=== PATIENT | male | born 1970 | race Caucasian/White ===

== ENCOUNTER 2022-06-14 12:33 | Outpatient (CLI) | payer BC, SELFPAY ==
[2022-06-14 15:10] LABS: Albumin* 4.8 g/dL (3.3-5.0); Chloride* 103 mmol/L (96-114)
[2022-06-14 15:11] LABS: Potassium* 4.6 mmol/L (3.6-5.1); Sodium* 138 mmol/L (135-149)
[2022-06-14 15:12] LABS: Cholesterol* 186 mg/dL (90-199)
[2022-06-14 15:13] LABS: Alanine Aminotransferase* 37 U/L (4-50); Alkaline Phosphatase* 88 U/L (40-150); Aspartate Amino Transferase* 39 U/L (12-35); Blood Urea Nitrogen* 16 mg/dL (7-30); Carbon Dioxide* 22 mmol/L (20-32); Estimated Glomerular Filt Rate 91 ml/min; Glucose* 131 mg/dL (60-115); Total Protein* 7.5 g/dL (6.0-8.3); Triglycerides* 107 mg/dL (40-149)
[2022-06-14 15:14] LABS: Calcium* 9.8 mg/dL (8.4-10.6); HDL Cholesterol* 40 mg/dL (>=40); LDL Cholesterol Calculated 124 mg/dL (<100)
[2022-06-14 15:28] LABS: PSA Screen* 0.25 ng/mL (0.10-4.00); Thyroid Stimulating Hormone* 0.609 uIU/mL (0.270-4.20)
== END 2022-06-14 12:34 | disposition home or self-care (01) ==
PROVIDERS: PCP Family Medicine; Visit Provider Family Medicine
DX: E11.9 Type 2 diabetes mellitus without complications (principal); Z12.5 Encounter for screening for malignant neoplasm of prostate; Z13.6 Encounter for screening for cardiovascular disorders; Z13.29 Encounter for screening for other suspected endocrine disorder
CPT/HCPCS: 80053; 80061; 84153; 84443

== ENCOUNTER 2022-06-22 15:51 | Emergency (ER) | payer BC, SELFPAY ==
[2022-06-22 16:05] VITALS: BP 112/87; PULSE 103; TEMP 36.8; O2SAT 98; BMI 30.4
--- NOTE | 2022-06-22 16:06 | ED_ITS ---
HPI - General Adult General Time Seen by Provider: 16:07 Date Seen: 06/22/22 Chief complaint: Shortness of Breath/Dyspnea Stated complaint: Shortness of breath Time Seen by Provider: 06/22/22 15:57 Source: patient Mode of arrival: ambulatory Limitations: no limitations History of Present Illness HPI narrative: 51-year-old male with history of diet controlled diabetes presents with shortness of breath. Patient has been dealing with upper respiratory symptoms of nasal congestion, cough, shortness of breath, chest tightness for a couple of weeks. He has been on azithromycin and doxycycline as well as a prednisone burst and inhaler with no relief. His has a nonproductive cough, nasal congestion, fever yesterday. No vomiting. Negative COVID test at home. Related Data Home Medications Medication Instructions Recorded Confirmed albuterol sulfate 90 mcg/actuation 2 puff inhalation QDAY PRN 06/14/22 06/14/22 aerosol inhaler shortness of breath or wheezing cannabis PO 06/14/22 citalopram 10 mg tablet 10 mg PO QDAY 06/14/22 06/14/22 etanercept 50 mg/mL (1 mL) 50 mg subcut QWEEK 06/14/22 06/14/22 subcutaneous pen injector (Enbrel SureClick) lisinopril 30 mg tablet 30 mg PO QDAY 06/14/22 06/14/22 lorazepam 1 mg tablet 1 mg PO PRN 06/14/22 06/14/22 metformin 1,000 mg tablet 1,000 mg PO BID 06/14/22 06/14/22 omeprazole 20 mg capsule,delayed 20 mg PO QDAY 06/14/22 06/14/22 release Previous Rx's Medication Instructions Recorded azithromycin 250 mg tablet See Rx Instructions PO .COMPLEX #6 06/14/22 (Zithromax Z-Rory) tabs prednisone 50 mg tablet 50 mg PO QDAY #7 tabs 06/14/22 cefdinir 300 mg capsule 300 mg PO BID 7 days #14 caps 06/19/22 dextromethorphan-guaifenesin 10 1 tab-cap PO Q8H PRN cough #14 caps 06/22/22 mg-200 mg capsule (Robitussin Cough-Chest Congestion DM) fluticasone propionate 50 2 spray intranasal DAILY #16 grams 06/22/22 mcg/actuation nasal spray,suspension (Flonase Allergy Relief) prednisone 10 mg tablets in a dose See Rx Instructions .Route 06/22/22 pack .COMPLEX #31 ea pseudoephedrine HCl 30 mg tablet 30 mg PO Q4-6H PRN nasal 06/22/22 congestion #20 tabs Allergies Allergy/AdvReac Type Severity Reaction Status Date / Time No Known Drug Allergies Allergy Verified 06/14/22 11:54 Review of Systems Status of ROS: Reports: 10 or more systems reviewed and unremarkable except as noted in History and below [facility] Medical History Type 2 diabetes mellitus Social History Smoking Status: Former smoker Little interest or pleasure in doing things: not at all Feeling down, depressed, or hopeless: not at all Exam Narrative: Exam Narrative: General: Well-developed and well-nourished, no acute distress Head: Atraumatic and normocephalic Eyes: Pupils are equal reactive, extraocular motions intact, conjunctiva clear ENT: External nose and ears are normal, posterior pharynx without erythema or exudate Neck: No midline cervical tenderness, full spontaneous range of motion the neck, trachea midline, no adenopathy Heart: Tachycardic but regular Lungs: Upper airway wheezes with expiration, trace inspiratory wheezes with some crackles in the bases Abdomen: Soft, nontender, nondistended with active bowel sounds Musculoskeletal: No tenderness, deformity, or edema Neurologic: Awake, alert, and oriented x3, no gross focal neurologic deficits, cranial nerves intact as tested Psych: Mood and affect are appropriate Skin: No rashes Const: Vital Signs, click to edit/add: Vital Signs - 24 hr 06/22/22 16:05 Temperature 98.2 F Pulse Rate [Left P ulse Oximeter] 103 H Blood Pressure [Ri ght Upper Arm] 112/87 Pulse Oximetry 98 Oxygen Delivery Me thod Room Air Documenting provider has reviewed patient's vital signs: yes Course Course Hospital Course: Patient seen and examined, prior records are reviewed. Patient presents with cough, shortness of breath, nasal congestion. This is been ongoing for couple of weeks in spite of trials of antibiotics and steroid as well as inhaler. On exam here, tachycardic, no hypoxia, no respiratory distress. Forced upper airway wheeze with exhalation, trace inspiratory wheezes. Reevaluation(s) Reevaluation #1: Labs are reassuring, CT scan of the chest is negative. Patient will be started on Flonase, pseudoephedrine, cough medication, and prednisone taper. Also discussed using a Neti pot and humidifier at home. Stable for discharge Time: 18:05 Vital Signs Vital signs: Initial Vital Signs Temperature 98.2 F 06/22/22 16:05 Temperature Source Temporal Artery Scan 06/22/22 16:05 Pulse Rate 103 H 06/22/22 16:05 Blood Pressure 112/87 06/22/22 16:05 Blood Pressure Mean 95 06/22/22 16:05 Blood Pressure Position Sitting 06/22/22 16:05 Pulse Oximetry 98 06/22/22 16:05 Oxygen Delivery Method 06/22/22 16:05 Vital Signs Temperature 98.2 F 06/22/22 16:05 Pulse Rate 103 H 06/22/22 16:05 Blood Pressure 112/87 06/22/22 16:05 Pulse Oximetry 98 06/22/22 16:05 Oxygen Delivery Method 06/22/22 16:05 Temperature 98.2 F 06/22/22 16:05 Pulse Rate 103 H 06/22/22 16:05 Blood Pressure 112/87 06/22/22 16:05 Pulse Oximetry 98 06/22/22 16:05 Oxygen Delivery Method 06/22/22 16:05 Medical Decision Making Medical Records Medical records reviewed: Yes I reviewed the patient's medical records Lab Data Lab results reviewed: Yes I reviewed the patient's lab results Labs: Lab Results 06/22/22 06/22/22 06/22/22 Range/Units 16:02 16:35 16:35 WBC 11.08 H (4.50-11.00) K/uL RBC 5.27 (4.30-5.90) m/uL Hgb 14.7 (13.5-17.5) gm/dL Hct 43.9 (37.0-53.0) % MCV 83 (80-100) fL MCH 28 (26-34) pg MCHC 34 (32-36) gm/dL RDW Coeff of Lorenzo 13.1 (11.5-15.5) % Plt Count 342 (140-440) K/uL Neut % (Auto) 73.1 H (42.0-72.0) % Lymph % (Auto) 18.4 L (20-44) % [place] % (Auto) 7.3 (0.0-11.0) % Eos % (Auto) 0.7 (0.0-7.0) % Baso % (Auto) 0.2 (0.0-3.0) % Neut # (Auto) 8.10 H (1.7-7.0) K/uL Lymph # (Auto) 2.00 (0.90-2.90) K/uL [place] # (Auto) 0.80 (0.00-0.90) K/UL Eos # (Auto) 0.10 (0.00-0.50) K/uL Baso # (Auto) 0.00 (0.00-0.30) K/uL Abs Immat Gran (auto) 0.00 (0.00-0.30) K/uL Imm/Tot Granulo (auto) 0.3 % VBG pH (7.32-7.43) VBG pCO2 (40-50) mmHG VBG pO2 (25-47) mmHG VBG HCO3 (21-28) mmol/L Sodium 137 (135-149) mmol/L Potassium 4.2 (3.6-5.1) mmol/L Chloride 106 (96-114) mmol/L Carbon Dioxide 21 (20-32) mmol/L BUN 14 (7-30) mg/dL Creatinine 0.8 (0.5-1.5) mg/dL Estimated Creat Clear 119.90 Estimated GFR 107 ml/min Glucose 139 H (60-115) mg/dL Calcium 9.5 (8.4-10.6) mg/dL Magnesium 1.6 (1.5-2.6) mg/dL NT-Pro-B Natriuret Pep (0-125) PG/mL SARS-CoV-2 (PCR) Negative SARS-CoV-2 (Negative) Influenza Type A (PCR) Negative PCR FLU A (Negative) Influenza Type B (PCR) Negative PCR FLU B (Negative) 06/22/22 06/22/22 Range/Units 16:35 16:35 WBC (4.50-11.00) K/uL RBC (4.30-5.90) m/uL Hgb (13.5-17.5) gm/dL Hct (37.0-53.0) % MCV (80-100) fL MCH (26-34) pg MCHC (32-36) gm/dL RDW Coeff of Lorenzo (11.5-15.5) % Plt Count (140-440) K/uL Neut % (Auto) (42.0-72.0) % Lymph % (Auto) (20-44) % [place] % (Auto) (0.0-11.0) % Eos % (Auto) (0.0-7.0) % Baso % (Auto) (0.0-3.0) % Neut # (Auto) (1.7-7.0) K/uL Lymph # (Auto) (0.90-2.90) K/uL [place] # (Auto) (0.00-0.90) K/UL Eos # (Auto) (0.00-0.50) K/uL Baso # (Auto) (0.00-0.30) K/uL Abs Immat Gran (auto) (0.00-0.30) K/uL Imm/Tot Granulo (auto) % VBG pH 7.468 H (7.32-7.43) VBG pCO2 33 L (40-50) mmHG VBG pO2 56.9 H (25-47) mmHG VBG HCO3 24 (21-28) mmol/L Sodium (135-149) mmol/L Potassium (3.6-5.1) mmol/L Chloride (96-114) mmol/L Carbon Dioxide (20-32) mmol/L BUN (7-30) mg/dL Creatinine (0.5-1.5) mg/dL Estimated Creat Clear Estimated GFR ml/min Glucose (60-115) mg/dL Calcium (8.4-10.6) mg/dL Magnesium (1.5-2.6) mg/dL NT-Pro-B Natriuret Pep 25 (0-125) PG/mL SARS-CoV-2 (PCR) (Negative) Influenza Type A (PCR) (Negative) Influenza Type B (PCR) (Negative) Imaging Data CT scan - chest: Attestation: I have reviewed the pertinent imaging results. My impression: No pulmonary, no acute infiltrates or effusion Radiologist's impression: IMPRESSION: 1. No pulmonary embolism. 2. Clear lungs. ECG Data Attestation: I personally reviewed and interpreted this ECG as follows: Prior ECG tracings: not available for review Interpretation: Performed at 4:58 p.m. demonstrates sinus rhythm rate 101, right bundle-branch block and left anterior fascicular block, no acute ST elevations or depressions, normal axis, QTC 42. No prior for comparison. Discharge Plan Discharge Clinical Impression: Acute frontal sinusitis Patient Disposition: Home, Self-Care Condition: Stable Instructions: Rhinosinusitis (DC) Additional Instructions: Take medications as prescribed. Get a Neti pot and use daily Follow-up with your doctor in 7-10 days Activity Level: No Restrictions Discharge Diet: Regular Prescriptions: New pseudoephedrine HCl 30 mg tablet 30 mg PO Q4-6H PRN (Reason: nasal congestion) Qty: 20 0RF Rx Instructions: DNExceed 4 doses/24h fluticasone propionate [Flonase Allergy Relief] 50 mcg/actuation spray,suspension 2 spray intranasal DAILY Qty: 16 2RF Rx Instructions: administer into each nostril prednisone 10 mg tablets,dose pack See Rx Instructions .ROUTE .COMPLEX Qty: 31 0RF Rx Instructions: 40 mg daily for 3 days, then 30 mg daily for 3 days, then 20 mg daily for 3 days, then 10 mg daily for 3 days, then 5 mg daily for 2 days Robitussin Cough-Chest Kamar DM 10-200 mg capsule 1 tab-cap PO Q8H PRN (Reason: cough) Qty: 14 0RF No Action metformin 1,000 mg tablet 1,000 mg PO BID Enbrel SureClick 50 mg/mL (1 mL) pen injector 50 mg subcut QWEEK citalopram 10 mg tablet 10 mg PO QDAY Label Comments: TAKE 1 TABLET BY MOUTH EVERY MORNING omeprazole 20 mg capsule,delayed release(DR/EC) 20 mg PO QDAY lisinopril 30 mg tablet 30 mg PO QDAY lorazepam 1 mg tablet 1 mg PO PRN Label Comments: TAKE 1 TABLET BY MOUTH EVERY 4 HOURS IF NEEDED FOR ANXIETY. albuterol sulfate 90 mcg/actuation HFA aerosol inhaler 2 puff inhalation QDAY PRN (Reason: shortness of breath or wheezing) cannabis PO prednisone 50 mg tablet 50 mg PO QDAY Qty: 7 0RF azithromycin [Zithromax Z-Rory] 250 mg tablet See Rx Instructions PO .COMPLEX Qty: 6 0RF Rx Instructions: For 250 mg dose pack: take 500 mg today (day 1), then 250 mg for 4 days (days 2-5) PO cefdinir 300 mg capsule 300 mg PO BID 7 Days Qty: 14 0RF Follow Up/Referrals: Landon Horne MD [Primary Care Provider] - Stand Alone Forms: [facility] Info Instructions
--- NOTE | 2022-06-22 16:20 | CRLHL7_ITS ---
For Patients: As a result of the Century Cures Act, medical imaging exams and procedure reports are released immediately into your electronic medical record. You may view this report before your referring provider. If you have questions, please contact your health care provider. INDICATION: Cough, dyspnea. TECHNIQUE: CT chest PE was acquired with 95 mL Isovue 370 IV contrast. Coronal and sagittal reformats were generated. COMPARISON: None. FINDINGS: Pulmonary arteries: The quality of enhancement of the pulmonary arteries is adequate. No filling defects to suggest pulmonary emboli. No findings of pulmonary artery hypertension. Thyroid: Unremarkable. Thoracic lymph nodes: No enlarged supraclavicular, mediastinal, hilar, or axillary lymph nodes. Mediastinum and esophagus: Unremarkable. Heart and vasculature: Unremarkable. Lungs: Unremarkable. Pleura: Unremarkable. Chest wall: Unremarkable. Upper abdomen: No acute or significant findings. Bones: Unremarkable for age. IMPRESSION: 1. No pulmonary embolism. 2. Clear lungs. Please note that all CT scans at this facility use dose modulation, iterative reconstruction, and/or weight-based dosing when appropriate to reduce radiation dose to as low as reasonably achievable. Dictated by Rambo Bocanegra MD @ 06/22/2022 5:26:03 PM (Electronically Signed)
[2022-06-22] MEDS: IPRAT-ALBUT 0.5-2.5 MG/3 ML NEB 1 NEB IH (16:45)
[2022-06-22 16:46] LABS: HCO3 VBG 24 mmol/L (21-28); PCO2 VBG 33 mmHG (40-50); PO2 VBG 56.9 mmHG (25-47); pH VBG 7.468 (7.32-7.43)
[2022-06-22 16:55] LABS: Basophils Percent Auto 0.2 % (0.0-3.0); Eosinophils Percent Auto 0.7 % (0.0-7.0); Hematocrit 43.9 % (37.0-53.0); Hemoglobin* 14.7 gm/dL (13.5-17.5); Immature Granulocytes Pct Auto 0.3 %; Lymphocytes Percent Auto 18.4 % (20-44); Mean Corpuscular HGB Conc 34 gm/dL (32-36); Mean Corpuscular Hemoglobin 28 pg (26-34); Mean Corpuscular Volume 83 fL (80-100); Monocytes Percent Auto 7.3 % (0.0-11.0); Neutrophils Percent Auto 73.1 % (42.0-72.0); Platelet Count* 342 K/uL (140-440); RDW Coefficient of Variation % 13.1 % (11.5-15.5); Red Blood Count 5.27 m/uL (4.30-5.90); White Blood Count* 11.08 K/uL (4.50-11.00)
[2022-06-22 17:02] LABS: Slide Review Reflex No
[2022-06-22 17:04] LABS: PCR FLU A Negative PCR FLU A (Negative); PCR FLU B Negative PCR FLU B (Negative)
[2022-06-22 17:05] LABS: SARS PCR* Negative SARS-CoV-2 (Negative)
[2022-06-22 17:26] LABS: Chloride* 106 mmol/L (96-114)
[2022-06-22 17:27] LABS: Potassium* 4.2 mmol/L (3.6-5.1); Sodium* 137 mmol/L (135-149)
[2022-06-22 17:29] LABS: Creatinine* 0.8 mg/dL (0.5-1.5); Estimated Glomerular Filt Rate 107 ml/min
[2022-06-22 17:30] LABS: Blood Urea Nitrogen* 14 mg/dL (7-30); Calcium* 9.5 mg/dL (8.4-10.6); Carbon Dioxide* 21 mmol/L (20-32); Glucose* 139 mg/dL (60-115); Magnesium* 1.6 mg/dL (1.5-2.6)
[2022-06-22 17:41] LABS: NT Pro B Type NatriureticPept* 25 PG/mL (0-125)
[2022-06-22 18:16] VITALS: PULSE 92; O2SAT 97
--- NOTE | 2022-06-22 18:49 | ED.NURSE ---
Pt left without taking written rx. Pt called and states he is on his way to work, so his fiance (aLla Davila) will come to [employer] supervisor rx. Script at [facility] for pickup.
== END 2022-06-22 18:17 | disposition home or self-care (01) ==
PROVIDERS: Emergency Provider Family Medicine; PCP Family Medicine
DX: J32.1 Chronic frontal sinusitis (principal)
CPT/HCPCS: 36415; 71260; 80048; 82803; 83735; 83880; 85025; 87631; 93005; 94640; 99284; 99285; Q9967

== ENCOUNTER 2023-06-28 08:34 | Outpatient (CLI) | payer BC, SELFPAY | END 2023-06-28 08:35 | disposition home or self-care (01) | LOC: NFLDREF 08:35 | PROVIDERS: PCP Family Medicine; Visit Provider Family Medicine | DX: E78.5 Hyperlipidemia, unspecified (principal); I10 Essential (primary) hypertension; E11.9 Type 2 diabetes mellitus without complications; N52.9 Male erectile dysfunction, unspecified | CPT/HCPCS: 80048; 80076 ==

== ENCOUNTER 2023-09-02 06:28 | Day surgery (SDC) | payer BC, SELFPAY ==
[2023-09-02] VITALS (8 sets, daily range): BP systolic 127–146; BP diastolic 74–84; PULSE 50–57; RESP 16–18; TEMP 36.5–36.6; O2SAT 95–100; BMI 31.1
--- OUTSIDE RECORDS SUMMARY | 2023-09-02 06:30 | XMS_ITS | Clinical Summary ---
Author Name Unknown Organization [facility] Address [place], [place] [address] Care Team Providers Care Paper Cutter Operator Name Role Phone Vy Shields MD Unavailable [phone] Pcp, No Primary Care Provider Unavailabl e Allergies Active Allergy Reactions Criticality Noted Date Comments Atorvastatin Intolerance-Can't Take 04/04/2017 Tramadol Hives Medium 01/18/2016 Medications Medication Sig Dispensed Refills Start Date End Date Status albuterol HFA (PRO-AIR; VENTOLIN; PROVENTIL) 90 mcg/actuation inhalerIndications:W heezing Inhale 1-2 Puffs by mouth every 4 hours if needed for Wheezing 2nd choice. 1 Each 0 09/22/2021 Active omeprazole (PRILOSEC) 20 mg Delayed-Release capsuleIndications:C hronic GERD Take 1 Capsule (20 mg) by mouth 3 times daily. TAKE 1 CAPSULE BY MOUTH THREE TIMES A DAY 270 Capsule 2 12/14/2021 Active lisinopriL (PRINIVIL; ZESTRIL) 30 mg tabletIndications:Hy pertension, unspecified type TAKE 1 TABLET BY MOUTH EVERY DAY 90 Tablet 2 12/17/2021 Active cyclobenzaprine (FLEXERIL) 5 mg tabletIndications:Ne uritis of foot, left Take 1 Tablet (5 mg) by mouth 3 times daily. 30 Tablet 0 02/14/2022 Active pravastatin (PRAVACHOL) 20 mg tabletIndications:Co ntrolled type 2 diabetes mellitus without complication, without long-term current use of insulin (HC) Take 1 Tablet (20 mg) by mouth at bedtime. 90 Tablet 3 02/15/2022 Active metFORMIN (GLUCOPHAGE) 1,000 mg tabletIndications:Ty pe 2 diabetes mellitus without complication, without long-term current use of insulin (HC) Take 1 Tablet (1,000 mg) by mouth in the morning and 1 Tablet (1,000 mg) in the evening. Take with meals. 180 tablet. 3 02/15/2022 Active LORazepam (ATIVAN) 1 mg tabletIndications:An xiety Take 1 Tablet (1 mg) by mouth every 4 hours if needed for Anxiety. 12 Tablet 0 02/15/2022 Active citalopram (CELEXA) 10 mg tabletIndications:An xiety Take 1 Tablet (10 mg) by mouth every morning. 90 Tablet 3 02/15/2022 Active fluticasone (50 mcg per actuation) nasal solution (FLONASE)Indications :Acute mucoid otitis media of both ears Inhale 1 Victor to both nostrils once daily. Inhale 1 Victor into both nostrils once daily. 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 11/10/2015 DDD (degenerative disc disease), lumbar 07/08/20 13 Herniation of lumbar intervertebral disc 012 Hypertension 12/15/2010 Resolved Problems Problem Noted Date Diagnosed Date Resolved Date Diabetes 07/08/2013 11/25/2015 Immunizations Name Administration Dates Next Due COVID-19 vaccine ([employer] NTech 30mcg/0.3mL) PF, MDV 07/05/2021,05/03/2021 Influenza, IIV3 (Age >=3 years) 05/23/20 09,06/25/2005,06/30/2003,2001 Influenza, IIV4 09/03/2019,06/15/2016 Pneumococcal Poly,23-Valent (Pneumovax) 08/17/2016 Td (Age >=7 Years) 05/01/2019 Tdap 05/23/2009 Family History Medical History Relation Name Comments Anesthesia Malignant Hyperthermia No Family History Social History Tobacco Use Types Packs/Day Years Used Date Smoking Tobacco: Never Smokeless Tobacco: Former Chew Quit: 08/19/2021 Tobacco Cessation:Counseling Given: Yes Alcohol Use Standard Drinks/Week Comments Not Currently 0 (1 standard drink = 0.6 oz pur e alcohol) PHQ-2 Answer Date Recorded PHQ-2 TOTAL SCORE 0 02/15/2022 Social Connections Answer Date Recorded Frequency of Communication with Friends and Fami ly Not on file 08/09/2021 Financial Resource Strain Answer Date R ecorded Difficulty of Paying Living Expenses Not on file 08/09/2021 Difficulty of Paying Living Expenses Not on file 08/09/2021 Sex and Gender Information Value Date Recorded Sex Assigned at Not on file Gender Identity Not on file Sexual Orientation Not on file Obstetrics History Last Filed Vital Signs Vital Sign Reading Time Taken Comments Blood Pressure 121/80 03/30/2022 9:31 AM CDT Pulse 75 03/30/2022 9:31 AM CDT Temperature 36.8 ??C (98.3 ??F) 01/31/2022 9:31 AM CD T Respiratory Rate 16 12/07/2021 10:34 AM CDT Oxygen Saturation 98% 03/30/2022 9:36 AM CDT Inhaled Oxygen Concentration - - Weight 105 kg (231 lb 6.4 oz) 03/30/2022 9:31 AM CDT Height 180.3 cm (5' 11) 02/15/2022 8:54 AM CDT Body Mass Index 32.27 02/15/2022 8:54 AM CDT Plan of Treatment Health Maintenance Due Date Last Done Comments HIV for age 15-65 1985 Colonoscopy through age 75 2015 Pneumococcal series for age 6-64 (2 of 2 - PCV) 08/17/2017 08/17/2016 Zoster (shingles) series for age 50+ (1 of 2) 2020 BMI (ht and wt on same day) for age 18+ 02/15/2023 02/15/2022, 01/31/2022, 10/26/2021, Additional history exists Depression screening for age 12+ 02/15/2023 02/15/2022, 02/15/2022, 10/26/2021, Additional history exists COVID-19 vaccine series (3 - 2022- season) 2023 07/05/2021, 05/03/2021 Influenza for age 50-64 04/19/2023 09/03/19 20, 06/15/2016, 05/23/2009, Additional history exists Lipids for age 45-75 02/15/2027 02/15/2022, 11/24/2020, 03/10/2020, Additional history exists Tetanus booster 05/01/2029 05/01/2019, 05/23/2009 Tdap Completed 05/23/2009 Hepatitis C screening for ag e 18-79 Completed 03/12/2016, 03/12/2016 Care Teams Paper Cutter Operator Relationship Specialty Start Date End Date Pcp, No . PCP - General 05/12/22 Vy Shields MD [address] [place] [address] Rheumatology Rheumatology 06/15/16
--- NOTE | 2023-09-02 06:47 | SUR.PREOP ---
SAME DAY SURGERY LOCAL INJECTION SITE VERIFICATION WAS PERFORMED BY SURGEON/PA AND PATIENT PRIOR TO LOCAL ANESTHETIC BEING INJECTED TO OPERATIVE SITE.
[2023-09-02] MEDS: ETHYL CHLORIDE 1 APPLICATION 1 APPLIC TOPICAL (06:55)
[2023-09-02] MEDS: BUPIVACAINE 0.5% 30 ML INJECTION (06:55)
--- NOTE | 2023-09-02 07:42 | P.ORPRC_ITS ---
Procedure Note Date of procedure: 09/02/23 Procedure: PREOPERATIVE DIAGNOSIS: 1. Right carpal tunnel syndrome 2. Right long trigger finger-flexor tenosynovitis POSTOPERATIVE DIAGNOSIS: 1. Right carpal tunnel syndrome 2. Right long trigger finger-flexor tenosynovitis PROCEDURE: 1. Right open carpal tunnel release 2. Right open long trigger finger release-A1 elmira release SURGEON: Roni Ramesh MD. CLOTHING PATTERN PREPARER: KLEBER Miles ANESTHESIA: Local anesthetic (50:50 mixture of 2 % lidocaine with epi and 0.5% marcaine plain) - 10ml total IMPLANTS: None EBL: 5 mL TOURNIQUET: None COMPLICATIONS: None evident INDICATIONS: The patient is a pleasant 52-year-old male who has experienced right hand numbess/tingling affecting the radial 3.5 digits for multiple months. It has progressively gotten worse. In addition, he has experienced right long finger catching/triggering with tenderness over the volar MCP joint region. Nonoperative management has been tried and failed, and therefore surgery was recommended. DESCRIPTION OF PROCEDURE: Following a thorough discussion of risks, benefits, and alternatives consent was obtained and the operative extremity was marked. The patient was brought to the operating room and placed supine on the operating table. Local anesthesia induction was undertaken in preop holding. No antibiotics were administered as this was planned to be a local case only. Proper time-out was performed identifying proper patient, site, and procedure. The operative extremity was prepped and draped in the appropriate sterile fashion using ChloraPrep. An incision was made in line with the radial border of the ring finger beginning 1 cm distal to the distal wrist crease and progressing for another 2.5cm distal. Caution was taken to stay proximal to Christian's cardinal line. Sharp incision through the skin, subcutaneous tissue, and palmar fascia was performed. The thenar musculature was bluntly elevated off the transverse carpal ligament. The ligament was directly visualized, and divided sharply with a 15 blade. This was released from its most proximal to the most distal extent. Metzenbaum scissor was also utilized to release the fascia extension proximally. We confirmed complete release of the transverse carpal ligament. We then turned our attention to the right long trigger finger release. An incision was made on the palmar surface of the hand overlying the MCP joint region of the appropriate digit(s) respecting the palmar creases being cautious not to cross these perpendicularly. Sharp incision through the skin, and blunt dissection through subcutaneous tissue allowing protection of crossing neurologic structures. The A1 elmira was visualized directly. It was incised sharply with a 15 blade. It was released completely from its distal to proximal extent under direct visualization. The tendon was inspected and found to be mildly striated consistent with some friction. Otherwise, it was intact. The tendon was removed out of the wound, and further inspected. The patient was asked to manually flex and extend the digits and showed no further catching. The catching, which was visualized initially, was no longer evident with reproduction of a manual fist and relaxation. Closure was performed with 4-O nylon in interrupted fashion. Soft dressings were applied, and the patient was transferred to the recovery room in stable condition. PLAN: 1. Encourage elevation of the operative extremity. 2. Range of motion of the fingers and hand/wrist as tolerated. 3. Ibuprofen/acetaminophen and/or Percocet as needed for pain control. 4. Follow up with PA visit in 12-16 days for wound check and suture removal.
[2023-09-02] MEDS: BACITRACIN OINTMENT BULK TUBE 1 APPLIC TOPICAL (07:46)
== END 2023-09-02 08:05 | disposition home or self-care (01) ==
PROVIDERS: PCP Family Medicine; Visit Provider Orthopaedic Surgery Sports Medicine
PROC: (CPT 26055; principal; 2023-09-02 07:30)
PROC: (CPT 64721; 2023-09-02 07:30)
DX: G56.01 Carpal tunnel syndrome, right upper limb (principal); M65.331 Trigger finger, right middle finger; M65.841 Other synovitis and tenosynovitis, right hand
CPT/HCPCS: 64721; 26055; J0665

== ENCOUNTER 2023-10-28 07:02 | Outpatient (CLI) | payer BC, SELFPAY ==
--- NOTE | 2023-10-28 07:56 | W.ANESCHARGE ---
Anesthesia Charges Start Date/Time Anesthesia Start Date: 10/28/23 Anesthesia Start Time: 07:25 Stop Date/Time Anesthesia Stop Date: 10/28/23 Anesthesia Stop Time: 07:54
--- NOTE | 2023-10-28 09:04 | W.ANESCHARGE ---
Anesthesia Charges Start Date/Time Anesthesia Start Date: 10/28/23 Anesthesia Start Time: 07:25 Stop Date/Time Anesthesia Stop Date: 10/28/23 Anesthesia Stop Time: 07:54
== END 2023-10-28 07:03 | disposition home or self-care (01) ==
LOC: OP CLINIC 07:03
PROVIDERS: PCP Family Medicine; Visit Provider Surgery
DX: Z12.11 Encounter for screening for malignant neoplasm of colon (principal); K62.1 Rectal polyp
CPT/HCPCS: 00811; 45385; 88305; J2704

== ENCOUNTER 2024-01-01 12:30 | Outpatient (CLI) | payer BC, SELFPAY ==
--- OUTSIDE RECORDS SUMMARY | 2024-01-01 12:34 | XMS_ITS | Clinical Summary ---
Author Name Unknown Organization [employer] [facility] Address [place], [place] [address] Care Team Providers Care Baseball Club Manager Name Role Phone Vy Shields MD Unavailable [phone] Pcp, No Primary Care Provider Unavailabl e Allergies Active Allergy Reactions Criticality Noted Date Comments Atorvastatin Intolerance-Can't Take 04/04/2017 Tramadol Hives Medium 01/18/2016 Medications Medication Sig Dispensed Refills Start Date End Date Status albuterol HFA (PRO-AIR; VENTOLIN; PROVENTIL) 90 mcg/actuation inhalerIndications:W heezing Inhale 1-2 Puffs by mouth every 4 hours if needed for Wheezing 2nd choice. 1 Each 09/22/2021 Active omeprazole (PRILOSEC) 20 mg Delayed-Release [...] by mouth 3 times daily. 30 Tablet 02/14/2022 Active pravastatin (PRAVACHOL) 20 mg tabletIndications:Co [...] hours if needed for Anxiety. 12 Tablet 02/15/2022 Active citalopram (CELEXA) 10 mg tabletIndications:An xiety Take 1 Tablet (10 mg) by mouth every morning. 90 Tablet 3 02/15/2022 Active fluticasone (50 mcg per actuation) nasal solution (FLONASE)Indications :Acute mucoid otitis media of both ears Inhale 1 [place] to both nostrils once daily. Inhale 1 [place] into both nostrils once daily. 15 mL [...] Diagnosed Date Resolved Date Diabetes 07/08/2013 11/25/2015 Encounters Date Type Department Care Team Description 10/28/2023 Lab Requisition [facility] [phone] Perri Rivera MD from Last 3 Months Immunizations Name Administration Dates Next Due COVID-19 vaccine (SpaceClaim NTAppHero 30mcg/0.3mL) NIRAV MCCULLOUGH 07/05/2021,05/03/2021 Influenza, IIV3 (Age >=3 years) 05/23/20 [...] 10/26/2021, Additional history exists COVID-19 vaccine series ( season) 2023 07/05/2021, 05/03/2021 Influenza for age 50-64 04/19/2024 09/03/19 20, 06/15/2016, 05/23/2009, Additional history exists Lipids for age 45-75 02/15/2027 02/15/2022, 11/24/2020, 03/10/2020, Additional history exists Tetanus booster 05/01/2029 05/01/2019, 05/23/2009 Tdap Completed 05/23/2009 Hepatitis C screening for ag e 18-79 Completed 03/12/2016, 03/12/2016 Procedures Procedure Name Priority Date/Time Associated Diagnosis Comments LAB TRACKING EVENT Routine 10/28/2023 8: 48 AM CDT PATH TISSUE EXAM Routine 10/28/2023 8:48 AM CDT LIPID PANEL W REFLEX MEASURED LDL Routine 02/15/2022 8:48 AM CDT Hypertriglyceridemi a ANTI HCV Routine 03/12/2016 10:45 AM CDT Sacroiliitis (HC) from Last 3 Months or Most Recently Relevant to Health Maintenance Results * LAB TRACKING EVENT (10/28/2023 8:48 AM CDT) Other (Other) Client Collect / Unknown 10/28/2023 8:48 AM CDT 10/28/2023 9:59 PM CDT Perri Rivera MD LAB BILL ONLY [facility] [address] [place] [address], * PATH TISSUE EXAM (10/28/2023 8:48 AM CDT) Case Report Pathology Report ?Case: [id number] ? Authorizing Provider: ??Perri Rivera MD ??Collected: ? 10/28/2023 0848 ? Ordering Location: ? [facility] ?Received: ?10/29/2023 0808 ? Pathologist: ? Nba Dougherty, ? MD ? Specimen: ?Rectal Polyp ? 10/30/2023 2:18 PM CDT [facility] Final Diagnosis A) RECTUM, POLYPECTOMY: 1. Hyperplastic polyp 10/30/2023 2:18 PM CDT [facility] Clinical Information Mr. Lunsford is a 53 y.o. undergoing screening colonoscopy. This is the patient's first colonoscopy. 10/30/2023 2:18 PM CDT [facility] Gross Description A) Received in formalin is a cabrales mucosal fragment measuring 3 mm in greatest dimension, which is entirely submitted in one cassette. It is labeled with the patient's name and designated colon-rectum. Meg Morse 10/29/2023 8:29 AM 10/30/2023 2:18 PM CDT [facility] Microscopic Description The final diagnosis is based on microscopic examination of appropriate sections of all specimens. 10/30/2023 2:18 PM CDT [facility] Additional Information Interpreted at [facility] - [address] [facility] [address], [place] [address] 10/30/2023 2:18 PM CDT [facility]- ENTRVA LABORATORY Other (Rectal Polyp ) 10/28/2023 8:48 AM CDT 10/29/2023 8:08 AM CDT Perri Rivera MD PATHOLOGY/CYTOLO GY Performing Organization Address City/State/[facility] Co de Phone Number [facility] [address] [place] [address], * (ABNORMAL) LIPID PANEL W REFLEX MEASURED LDL (02/15/2022 8:48 AM CDT) CHOLESTEROL,TOTAL 156 100 - 199 mg/dL 02/15/2022 5:09 PM CDT [facility] TRAL LABORATORY TRIGLYCERIDES 120 <150 mg/dL 02/15/2022 5:09 PM CDT [facility] TR[facility] LABORATORY HDL CHOLESTEROL 40(L) >40 mg/dL 5:09 PM CDT [facility] TR[facility] LABOR[facility]ORY NON-HDL CHOLESTEROL 116 <145 mg/dl 02/15/2022 5:09 PM CDT [facility] TRAL LABORATORY CHOL/HDL RATIO 3.90 <4.50 02/15/2022 5:09 PM CDT [facility] TRAL LAB[facility]ORY LDL CHOLESTEROL 92 <=130 mg/dL 02/15/2022 5:09 PM CDT [facility] TR[facility] LAB[facility] VLDL CHOLESTEROL 24 <=30 mg/dL 02/15/2022 5:09 PM CDT [facility] TRAL LABORATORY PROVIDER ORDERED STATUS RANDOM 02/15/2022 5:09 PM CDT [facility] Blood BLOOD SPECIMEN / Unknown Venipuncture / Unknown 02/15/2022 8:48 AM CDT 02/15/2022 8:51 AM CDT Chema Isbell MD CHEMISTRY [facility] 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 Reflexed to HCV RNA Quant (See separate report). Vy Shields MD SEND OUTS [facility] [address] [place] [address], from Last 3 Months or Most Recently Relevant to Health Maintenance Care Teams Baseball Club Manager Relationship Specialty Start Date End Date Pcp, No . PCP - General 05/12/22 Vy Shields MD [address] [place] [address] Rheumatology Rheumatology 06/15/16
== END 2024-01-01 12:31 | disposition home or self-care (01) ==
PROVIDERS: PCP Family Medicine; Visit Provider Family Medicine
DX: E11.9 Type 2 diabetes mellitus without complications (principal); I10 Essential (primary) hypertension; E78.5 Hyperlipidemia, unspecified; Z79.899 Other long term (current) drug therapy
CPT/HCPCS: 80048; 80061; 84460; 85025

== ENCOUNTER 2024-01-28 15:20 | Outpatient (CLI) | payer BC, SELFPAY ==
--- OUTSIDE RECORDS SUMMARY | 2024-01-28 15:22 | XMS_ITS | Clinical Summary ---
Author Organization [employer] [facility] Address [place], [place] [address] Care Team Providers Care Digital Circuit Designer Name Role Phone Vy Shields MD Unavailable [phone] Pcp, No Primary Care Provider Unavailabl e [...] otitis media of both ears Inhale 1 [place] to both nostrils once daily. Inhale 1 [place] into both nostrils once daily. 15 mL [...] Department Care Team Description 10/28/2023 Lab Requisition [facility] [phone] Perri Rivera MD from Last 3 Months Immunizations Name Administration Dates Next Due COVID-19 vaccine (Adform 30mcg/0.3mL) PFNIRAV 07/05/2021,05/03/2021 Influenza, IIV3 (Age >=3 years) 05/23/20 [...] history exists COVID-19 vaccine series (3 - 2023-24 season) 2023 07/05/2021, 05/03/2021 Influenza for age [...] CDT Perri Rivera MD LAB BILL ONLY [facility] [address] [place] [address], * PATH TISSUE EXAM (10/28/2023 8:48 AM CDT) Case Report Pathology Report ?Case: [id number] ? Authorizing Provider: ??Perri Rivera MD ??Collected: ? 10/28/2023 0848 ? Ordering Location: ? [facility] ?Received: ?10/29/2023 0808 ? Pathologist: ? Nba Dougherty, ? MD ? Specimen: ?Rectal Polyp ? 10/30/2023 2:18 PM CDT [facility] LABORATORY Final Diagnosis A) RECTUM, POLYPECTOMY: 1. Hyperplastic polyp 10/30/2023 2:18 PM CDT [facility] Clinical Information Mr. Lunsford is a 53 y.o. undergoing screening colonoscopy. This is the patient's first colonoscopy. 10/30/2023 2:18 PM CDT [facility] Gross Description A) Received in formalin is a cabrales mucosal fragment measuring 3 mm in greatest dimension, which is entirely submitted in one cassette. It is labeled with the patient's name and designated colon-rectum. Meg Morse 10/29/2023 8:29 AM 10/30/2023 2:18 PM CDT [facility]- ENTRAL LABORATORY Microscopic Description The final diagnosis is based on microscopic examination of appropriate sections of all specimens. 10/30/2023 2:18 PM CDT [facility] LABORAT[facility] Additional Information Interpreted at [facility] - [address] [facility] [address], [place] [address] 10/30/2023 2:18 PM CDT [facility]- ENTRMS LABORATORY Other (Rectal Polyp ) 10/28/2023 8:48 AM CDT 10/29/2023 8:08 AM CDT Perri Rivera MD PATHOLOGY/CYTOLO GY [facility] [address] [place] [address], * (ABNORMAL) LIPID PANEL W REFLEX MEASURED LDL (02/15/2022 8:48 AM CDT) CHOLESTEROL,TOTAL 156 100 - 199 mg/dL 02/15/2022 5:09 PM CDT [facility] TRAL LABORATORY TRIGLYCERIDES 120 <150 mg/dL 02/15/2022 5:09 PM CDT [facility] TR[facility] LAB[facility]ATORY HDL CHOLESTEROL 40(L) >40 mg/dL 5:09 PM CDT [facility] TR[facility] LABORATORY NON-HDL CHOLESTEROL 116 <145 mg/dl 02/15/2022 5:09 PM CDT [facility] TR[facility] LABORATORY CHOL/HDL RATIO 3.90 <4.50 02/15/2022 5:09 PM CDT [facility] TRAL LABORAT[facility] LDL CHOLESTEROL 92 <=130 mg/dL 02/15/2022 5:09 PM CDT [facility] TR[facility] LAB[facility] VLDL CHOLESTEROL 24 <=30 mg/dL 02/15/2022 5:09 PM CDT [facility] TRAL LABORATORY PROVIDER ORDERED STATUS RANDOM 02/15/2022 5:09 PM CDT [facility] LAB[facility] Blood BLOOD SPECIMEN / Unknown Venipuncture / Unknown 02/15/2022 8:48 AM CDT 02/15/2022 8:51 AM CDT Chema Isbell MD [facility] 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 Reflexed to HCV RNA Quant (See separate report). Vy Shields MD SEND OUTS [facility] [address] [place] [address], from Last 3 Months or Most Recently Relevant to Health Maintenance Care Teams Digital Circuit Designer Relationship Specialty Start Date End Date Pcp, No . PCP - General 05/12/22 Vy Shields MD [address] [place] [address] Rheumatology Rheumatology 06/15/16
[2024-01-28 23:38] LABS: Chlamydia DNA Amplified* NOT DETECTED (No Detected); GC DNA Amplified* NOT DETECTED (No Detected)
== END 2024-01-28 15:21 | disposition home or self-care (01) ==
PROVIDERS: PCP Family Medicine; Visit Provider Family Medicine
DX: R30.0 Dysuria (principal); Z11.3 Encounter for screening for infections with a predominantly sexual mode of transmission; Z72.51 High risk heterosexual behavior
CPT/HCPCS: 81001; 86592; 86703; 87491; 87591

== ENCOUNTER 2025-01-13 10:57 | Outpatient (CLI) | payer BC, SELFPAY | END 2025-01-13 10:58 | disposition home or self-care (01) | PROVIDERS: PCP Family Medicine; Visit Provider Family Medicine | DX: E78.2 Mixed hyperlipidemia (principal); I10 Essential (primary) hypertension; M45.6 Ankylosing spondylitis lumbar region; Z12.5 Encounter for screening for malignant neoplasm of prostate | CPT/HCPCS: 80048; 80061; 84460; 85025; G0103 ==